=== PATIENT | male | born 1975 | race Caucasian/White ===

== ENCOUNTER 2023-03-05 12:22 | Inpatient (IN) | payer SELFPAY ==
[2023-03-05] MEDS ORDERED: Lorazepam 2 MG/ML VIAL ONE (12:33)
[2023-03-05] MEDS ORDERED: Dexamethasone 10 MG/ML VIAL ONE (12:38)
[2023-03-05] MEDS ORDERED: Magnesium 2 GM/50 ML BAG (IN WATER) ONE (12:38)
[2023-03-05 13:08] LABS: #Basophils 0.1 10x3/uL (0.0-0.2); #Eosinphils 0.3 10x3/uL (0.0-0.5); #Monocytes 1.6 10x3/uL (0.0-1.1); %Basophils 0.4 % (0.0-2.0); %Neutrophils 77.2 % (40.0-75.0); Hemoglobin 16.1 g/dL (13.5-17.5); Mean Corpuscular HGB CONC 34.5 g/dL (32.0-36.0); Mean Corpuscular Hemoglobin 30.4 pg (27.0-33.0); Mean Corpuscular Volume 88.1 fl (81.2-95.1); Mean Platelet Volume 10.1 fl (7.4-10.4); Platelet Count 287 10x3/uL (150-450); RBC Distribution Width 12.6 % (11.5-14.5); White Blood Cell (WBC) Count 15.6 10x3/uL (3.5-10.5)
[2023-03-05 13:33] LABS: ALT (SGPT) 75 U/L (8-55); AST (SGOT) 87 U/L (5-34); Albumin 4.6 g/dL (3.5-5.0); Alkaline Phosphatase 60 U/L (40-110); Anion Gap 22 mmol/L (10-20); BUN (Urea Nitrogen) 19 mg/dL (8.9-20.6); Bilirubin, Total 0.5 mg/dL (0.2-1.2); CK (CPK) 2694 U/L (30-200); Calc. Creatinine Clearance 0 mL/min (70-130); Calcium 8.9 mg/dL (7.8-10.44); Carbon Dioxide 17 mmol/L (22-29); Chloride 101 mmol/L (98-107); Estimated GFR 78; Globulin 2.4 g/dL (2.4-3.5); Glucose 228 mg/dL (70-105); Potassium 3.8 mmol/L (3.5-5.1); Sodium 136 mmol/L (136-145)
[2023-03-05] MEDS ORDERED: Ondansetron ODT 4 MG TAB PO PRN (14:13)
[2023-03-05] MEDS ORDERED: Ondansetron PF 4 MG/2 ML Vial IVP PRN (14:13)
[2023-03-05] MEDS ORDERED: Acetaminophen 325 MG TAB PO PRN (14:13)
[2023-03-05] MEDS ORDERED: Lorazepam 2 MG/ML VIAL IM PRN (14:19)
[2023-03-05] MEDS ORDERED: Lorazepam 1 MG TAB PO PRN (14:19)
[2023-03-05] MEDS ORDERED: Electrolyte Replacement Protocol 1 EACH FS SCH (14:30)
[2023-03-05 15:02] LABS: Acetaminophen Less than 10.0 mcg/mL (10.0-30.0); Alcohol Less than 10 mg/dL (Less than 10); Salicylate Less than 8.0 mg/dL (15.0-30.0)
[2023-03-05] MEDS ORDERED: Lorazepam 1 MG TAB ONE (18:58)
[2023-03-05] MEDS ORDERED: Thiamine HCl 200 MG/2 ML VIAL ONE (18:59)
[2023-03-05] MEDS ORDERED: Nicotine 14 MG PATCH ONE (18:59)
[2023-03-05] MEDS ORDERED: Ipratropium/Albuterol 3 ML NEB ONE (19:00)
[2023-03-05] MEDS ORDERED: methylPREDNISolone Sod Succ 40 MG VIAL ONE (19:00)
[2023-03-05] MEDS: Sodium Chloride 0.9% 1,000 ML IV SCH (19:15)
[2023-03-05] MEDS: Nicotine 14 MG PATCH TD SCH (19:15)
[2023-03-05] MEDS: Ipratropium/Albuterol 3 ML NEB NEB SCH ×3 (19:16→22:17)
[2023-03-05] MEDS: Lorazepam 1 MG TAB PO SCH ×2 (19:16)
[2023-03-05] MEDS: Thiamine HCl 200 MG/2 ML VIAL SLOW IVP SCH (19:16)
[2023-03-05] MEDS: methylPREDNISolone Sod Succ 40 MG VIAL IVP SCH (19:17)
[2023-03-05 20:27] VITALS: BMI 23.0
[2023-03-05 21:20] LABS: Bilirubin Neg (Negative); Blood, Urine Negative (Negative); Clarity Clear (Clear); Glucose, Urine (Dipstick) >=1000 mg/dL (Negative); Ketone, Urine Negative (Negative); Leukocyte Negative (Negative); Nitrite Negative (Negative); Protein, Urine (Dipstick) Negative (Neg-Trace); Urobilinogen Normal mg/dL (Less than 2)
[2023-03-05 21:29] LABS: Amphetamine Detected (NotDetected); Barbiturates Screen Not Detected (NotDetected); Benzodiazepine Screen Detected (NotDetected); Cocaine Metabolite Screen Not Detected (NotDetected); Methadone Not Detected (NotDetected); Methamphetamine Detected (NotDetected); Opiate Screen Not Detected (NotDetected); Oxycodone Screen Not Detected (NotDetected); Phencyclidine (PCP) Not Detected (NotDetected); THC/Cannabinoid Screen Detected (NotDetected); Tricyclic Screen Not Detected (NotDetected)
[2023-03-06] MEDS: methylPREDNISolone Sod Succ 40 MG VIAL IVP SCH ×4 (00:17→18:17)
[2023-03-06] MEDS: Sodium Chloride 0.9% 1,000 ML IV SCH ×2 (00:17→18:17)
[2023-03-06] MEDS: Ipratropium/Albuterol 3 ML NEB NEB SCH ×6 (03:30→22:45)
[2023-03-06] MEDS: Lorazepam 1 MG TAB PO SCH ×5 (03:50→20:23)
[2023-03-06 06:30] LABS: #Monocytes 0.7 10x3/uL (0.0-1.1); %Lymphocytes 11.6 % (18.0-47.0); %Monocytes 7.8 % (0.0-10.0); %Neutrophils 80.4 % (40.0-75.0); Hemoglobin 14.9 g/dL (13.5-17.5); Mean Corpuscular Hemoglobin 30.6 pg (27.0-33.0); Mean Corpuscular Volume 89.9 fl (81.2-95.1); Mean Platelet Volume 9.8 fl (7.4-10.4); Platelet Count 256 10x3/uL (150-450); Red Blood Cell (RBC) Count 4.87 10x6/uL (4.32-5.72); White Blood Cell (WBC) Count 8.7 10x3/uL (3.5-10.5)
[2023-03-06 06:45] LABS: ALT (SGPT) 68 U/L (8-55); AST (SGOT) 61 U/L (5-34); Albumin 4.3 g/dL (3.5-5.0); Alkaline Phosphatase 54 U/L (40-110); Anion Gap 15 mmol/L (10-20); BUN (Urea Nitrogen) 15 mg/dL (8.9-20.6); Bilirubin, Total 0.2 mg/dL (0.2-1.2); Calc. Creatinine Clearance 118 mL/min (70-130); Calcium 8.9 mg/dL (7.8-10.44); Carbon Dioxide 22 mmol/L (22-29); Chloride 107 mmol/L (98-107); Estimated GFR 109; Globulin 2.4 g/dL (2.4-3.5); Glucose 133 mg/dL (70-105); Potassium 4.3 mmol/L (3.5-5.1); Protein, Total 6.7 g/dL (6.0-8.3); Sodium 140 mmol/L (136-145)
[2023-03-06] MEDS: Folic Acid 1 MG TAB PO SCH (10:11)
[2023-03-06] MEDS: Multivit, Therapeutic 1 TAB PO SCH (10:11)
[2023-03-06] MEDS ORDERED: Lorazepam 1 MG TAB PO PRN (14:19)
[2023-03-06] MEDS: Thiamine HCl 200 MG/2 ML VIAL SLOW IVP SCH (15:49)
[2023-03-06] MEDS: Nicotine 14 MG PATCH TD SCH (15:49)
[2023-03-06] MEDS ORDERED: Montelukast Sodium 10 mg Tablet PO SCH (21:00)
[2023-03-07] MEDS: methylPREDNISolone Sod Succ 40 MG VIAL IVP SCH ×3 (00:08→15:27)
[2023-03-07] MEDS: Lorazepam 1 MG TAB PO SCH ×2 (02:06→15:27)
[2023-03-07] MEDS: Ipratropium/Albuterol 3 ML NEB NEB SCH ×4 (02:40→14:49)
[2023-03-07 05:33] LABS: #Monocytes 0.5 10x3/uL (0.0-1.1); #Neutrophils 10.8 10x3/uL (1.5-8.4); %Basophils 0.2 % (0.0-2.0); %Lymphocytes 7.3 % (18.0-47.0); %Monocytes 4.4 % (0.0-10.0); %Neutrophils 87.8 % (40.0-75.0); Mean Corpuscular HGB CONC 33.4 g/dL (32.0-36.0); Mean Corpuscular Volume 89.9 fl (81.2-95.1); Mean Platelet Volume 9.9 fl (7.4-10.4); Platelet Count 250 10x3/uL (150-450); RBC Distribution Width 13.5 % (11.5-14.5); Red Blood Cell (RBC) Count 4.66 10x6/uL (4.32-5.72); White Blood Cell (WBC) Count 12.3 10x3/uL (3.5-10.5)
[2023-03-07 05:50] LABS: ALT (SGPT) 72 U/L (8-55); AST (SGOT) 60 U/L (5-34); Alkaline Phosphatase 44 U/L (40-110); Anion Gap 13 mmol/L (10-20); BUN (Urea Nitrogen) 16 mg/dL (8.9-20.6); Bilirubin, Total 0.2 mg/dL (0.2-1.2); Calc. Creatinine Clearance 122 mL/min (70-130); Calcium 8.3 mg/dL (7.8-10.44); Carbon Dioxide 22 mmol/L (22-29); Chloride 108 mmol/L (98-107); Estimated GFR 110; Globulin 2.2 g/dL (2.4-3.5); Glucose 130 mg/dL (70-105); Potassium 4.1 mmol/L (3.5-5.1); Protein, Total 6.2 g/dL (6.0-8.3); Sodium 139 mmol/L (136-145)
[2023-03-07] MEDS: Sodium Chloride 0.9% 1,000 ML IV SCH (06:36)
[2023-03-07 13:21] VITALS: BP 141/93; TEMP 98.1
[2023-03-07] MEDS ORDERED: Lorazepam 1 MG TAB PO PRN (14:19)
[2023-03-07] MEDS ORDERED: Lorazepam 0.5 MG TAB PO SCH (14:30)
[2023-03-07] MEDS: Multivit, Therapeutic 1 TAB PO SCH (15:26)
[2023-03-07] MEDS: Folic Acid 1 MG TAB PO SCH (15:26)
[2023-03-07] MEDS: Nicotine 14 MG PATCH TD SCH (15:27)
[2023-03-07] MEDS: Thiamine HCl 200 MG/2 ML VIAL SLOW IVP SCH (15:27)
[2023-03-07] MEDS ORDERED: Budesonide 0.5 MG/2 ML NEB NEB SCH (18:30)
[2023-03-08] MEDS ORDERED: Lorazepam 0.5 MG TAB PO PRN (14:19)
[2023-03-08] MEDS ORDERED: Thiamine 100 MG TAB PO SCH (14:30)
== END 2023-03-07 17:18 | disposition home or self-care (01) | DRG 202 ==
LOC: CSHERS 12:22 → CSHERHOLD 19:10 → CSHTELE 21:49
PROVIDERS: ADMIT Emergency Medicine; ATTEND Internal Medicine
DX: J45.901 Unspecified asthma with (acute) exacerbation (principal); M62.82 Rhabdomyolysis; I10 Essential (primary) hypertension; F17.210 Nicotine dependence, cigarettes, uncomplicated; F12.10 Cannabis abuse, uncomplicated; R74.01 Elevation of levels of liver transaminase levels; F15.10 Other stimulant abuse, uncomplicated; Z71.6 Tobacco abuse counseling; Z71.51 Drug abuse counseling and surveillance of drug abuser; Z79.899 Other long term (current) drug therapy; Z79.52 Long term (current) use of systemic steroids
CPT/HCPCS: 36415; 71045; 80053; 80306; 80307; 81003; 82550; 84484; 85025; 93005; 94640; 94760; J1100; J1650; J2060; J2920; J3411; J3475; J7050; J7611; J7620